=== PATIENT | male | born 1975 | race Hispanic/Latino ===

== ENCOUNTER 2017-01-02 20:31 | Emergency (ER) | payer OTHER ==
[~2017-01-02] VITALS: Ht 177.8 cm; Wt 108.5 kg
[~2017-01-02 20:31] MED LIST: WELLBUTRIN SR150 MG PO
[2017-01-02] MEDS ORDERED: AMOXICILLIN875 MG PO (22:05)
[2017-01-02] MEDS ORDERED: MOTRIN600 MG PO (22:05)
[2017-01-02] MEDS ORDERED: NORCO 5/3251 TABLET PO (22:05)
[2017-01-02 22:29] VITALS: BP 151/113
== END 2017-01-02 22:29 | disposition home or self-care (01) ==
LOC: RME 20:31 → EME 20:31 → RME 22:29
PROC: 3E0T3BZ Introduction of Anesthetic Agent into Peripheral Nerves and Plexi, Percutaneous Approach (ICD-10-PCS; principal; 2017-01-02)
DX: K08.89 Other specified disorders of teeth and supporting structures (principal); F17.200 Nicotine dependence, unspecified, uncomplicated
CPT/HCPCS: 99281; 99283